=== PATIENT | female | born 1975 ===

== ENCOUNTER → 2021-03-24 | Outpatient (CLI) | payer OTHER | LOC: MC.RAD 02-11 14:15 | DX: Z12.31 Encounter for screening mammogram for malignant neoplasm of breast (principal); N63.10 Unspecified lump in the right breast, unspecified quadrant ==

== ENCOUNTER → 2021-04-10 | Outpatient (CLI) | payer OTHER | LOC: MC.RAD 07:00 | DX: N63.0 Unspecified lump in unspecified breast (principal) ==